=== PATIENT | male | born 1955 | race Caucasian/White ===

== ENCOUNTER → 2018-11-19 07:10 | Outpatient (CLI) | payer BC, SELFPAY ==
[2018-11-19 08:22] LABS: Alanine Aminotransferase 167 IU/L (21-72); Albumin 4.3 g/dL (3.5-5.0); Alkaline Phosphatase 94 U/L (38-126); Aspartate Aminotransferase 136 IU/L (17-59); Bilirubin Total 0.8 mg/dL (0.2-1.3); Blood Urea Nitrogen 20 mg/dL (9-20); Calcium 9.1 mg/dL (8.4-10.2); Carbon Dioxide 26 mmol/L (22-32); Chloride 103 mmol/L (98-107); Cholesterol 165 mg/dL (140-199); Estimated Glomerular Filt Rate > 60.0 mL/min (>60); Globulin 4.3 g/dL (1.7-4.1); Glucose 55 mg/dL (80-110); HDL Cholesterol 56 mg/dL (40-60); HEMOLYSIS < 15 (0-50); LDL Cholesterol Calculated 90 mg/dL (<100); Potassium 3.7 mmol/L (3.4-5.1); Sodium 140 mmol/L (137-145); Total Protein 8.6 g/dL (6.3-8.2); Triglycerides 97 mg/dL (35-150)
[2018-11-19 16:08] LABS: Creatinine Urine Random 160.6 mg/dL
[2018-11-19 16:14] LABS: Microalbumi Creatinin Ratio Ur 38.6 ug/mg CR (<30); Microalbumin Urine Random 6.2 mg/dL (0-1.6)
== END ==
PROVIDERS: Family Provider Family Medicine; PCP Family Medicine; Visit Provider Internal Medicine Endocrinology, Diabetes & Metabolism
DX: E10.649 Type 1 diabetes mellitus with hypoglycemia without coma (principal)
CPT/HCPCS: 36415; 80053; 80061; 82043; 82570

== ENCOUNTER → 2018-12-10 11:13 | Outpatient (CLI) | payer BC, SELFPAY ==
[2018-12-10 12:08] LABS: Alanine Aminotransferase 109 IU/L (21-72); Albumin 4.5 g/dL (3.5-5.0); Alkaline Phosphatase 81 U/L (38-126); Aspartate Aminotransferase 93 IU/L (17-59); Bilirubin Total 0.8 mg/dL (0.2-1.3); Bilirubin Unconjugated 0.5 mg/dL (0.0-1.1); Globulin 4.7 g/dL (1.7-4.1); HEMOLYSIS < 15 (0-50); Total Protein 9.2 g/dL (6.3-8.2)
== END ==
PROVIDERS: Family Provider Family Medicine; PCP Family Medicine; Visit Provider Internal Medicine Endocrinology, Diabetes & Metabolism
DX: E10.649 Type 1 diabetes mellitus with hypoglycemia without coma (principal)
CPT/HCPCS: 36415; 80076

== ENCOUNTER → 2019-01-14 11:32 | Outpatient (CLI) | payer BC, SELFPAY ==
[2019-01-14 13:31] LABS: Alanine Aminotransferase 59 IU/L (21-72); Albumin 4.5 g/dL (3.5-5.0); Albumin Globulin Ratio 1.1 (1.0-2.8); Alkaline Phosphatase 78 U/L (38-126); Aspartate Aminotransferase 68 IU/L (17-59); Bilirubin Total 0.8 mg/dL (0.2-1.3); Bilirubin Unconjugated 0.5 mg/dL (0.0-1.1); HEMOLYSIS < 15 (0-50); Total Protein 8.5 g/dL (6.3-8.2)
== END ==
PROVIDERS: Family Provider Family Medicine; PCP Family Medicine; Visit Provider Internal Medicine Endocrinology, Diabetes & Metabolism
DX: E10.649 Type 1 diabetes mellitus with hypoglycemia without coma (principal)
CPT/HCPCS: 36415; 80076

== ENCOUNTER → 2019-02-08 10:44 | Outpatient (CLI) | payer BC, SELFPAY ==
[2019-02-08 12:17] LABS: Cholesterol 214 mg/dL (140-199); HDL Cholesterol 52 mg/dL (40-60); LDL Cholesterol Calculated 148 mg/dL (<100); Triglycerides 71 mg/dL (35-150)
== END ==
PROVIDERS: Family Provider Family Medicine; PCP Family Medicine; Visit Provider Internal Medicine Endocrinology, Diabetes & Metabolism
DX: E78.00 Pure hypercholesterolemia, unspecified (principal)
CPT/HCPCS: 36415; 80061

== ENCOUNTER → 2019-05-19 08:03 | Outpatient (CLI) | payer BC, SELFPAY ==
[2019-05-19 09:06] LABS: Alanine Aminotransferase 30 IU/L (21-72); Albumin 4.3 g/dL (3.5-5.0); Albumin Globulin Ratio 1.2 (1.0-2.8); Alkaline Phosphatase 67 U/L (38-126); Aspartate Aminotransferase 40 IU/L (17-59); Bilirubin Total 0.9 mg/dL (0.2-1.3); Bilirubin Unconjugated 0.7 mg/dL (0.0-1.1); Cholesterol 253 mg/dL (140-199); Globulin 3.6 g/dL (1.7-4.1); HDL Cholesterol 64 mg/dL (40-60); HEMOLYSIS < 15 (0-50); LDL Cholesterol Calculated 171 mg/dL (<100); Total Protein 7.9 g/dL (6.3-8.2); Triglycerides 92 mg/dL (35-150)
== END ==
PROVIDERS: Family Provider Family Medicine; PCP Family Medicine; Visit Provider Internal Medicine Endocrinology, Diabetes & Metabolism
DX: E78.00 Pure hypercholesterolemia, unspecified (principal)
CPT/HCPCS: 36415; 80061; 80076

== ENCOUNTER 2019-07-17 08:39 | Emergency (ER) | payer BC, SELFPAY ==
[2019-07-17 08:46] VITALS: BP 138/55; PULSE 75; RESP 20; TEMP 36.7; O2SAT 98; BMI 27.6
--- NOTE | 2019-07-17 08:54 | ED.NAVMDI ---
HPI - Nausea/Vomiting/Diarrhea General Chief complaint: Nausea/Vomiting/Diarrhea Stated complaint: high fever/diarrhea/nausea/type 1 dm x5days Time Seen by Provider: 07/17/19 08:52 Source: patient Mode of arrival: ambulatory Limitations: no limitations History of Present Illness HPI Narrative: 63-year-old male. Type 1 diabetic with an insulin pump here for 5 days of feeling ill. He is here with his . He states that his symptoms started 5 days ago with nausea and vomiting and has since turned into diarrhea. He no longer has any nausea vomiting. Only has abdominal pain around the time that he has to have a bowel movement. He is not having any pain with bowel movements. No blood in the stool. No prior abdominal surgeries. He states that his blood sugars have been running higher than normal. No recent travel. No recent antibiotics. No sick contacts. Has not tried anything for symptoms prior to arrival. states he has lost approximately 15 lb in the past 5 days. Related Data Home Medications Medication Instructions Recorded Confirmed aspirin 81 mg tablet,delayed 81 mg PO DAILY 11/25/18 11/25/18 release atorvastatin 20 mg tablet PO 90 Days #90 tab 11/25/18 11/25/18 glucagon (human recombinant) 1 mg IM 60 Days #1 each 11/25/18 11/25/18 solution for injection insulin aspart U-100 100 100 CONTINUOUS IV INFUSION 86 Days #60 11/25/18 11/25/18 unit/mL subcutaneous solution ml olmesartan 20 mg tablet PO 90 Days #90 tab 11/25/18 11/25/18 Previous Rx's Medication Instructions Recorded ondansetron 4 mg PO Q6H PRN #14 tab 07/17/19 Allergies Allergy/AdvReac Type Severity Reaction Status Date / Time No Known Drug Allergies Allergy Verified 07/17/19 08:52 Review of Systems Constitutional Constitutional: Denies fever(s) and Denies headache(s) ENT Ears, Nose, Mouth, and Throat: Denies headache(s) Cardiovascular Cardiovascular: Denies chest pain and Denies dyspnea Respiratory Respiratory: Denies dyspnea Gastrointestinal Gastrointestinal: Denies abdominal pain, Denies melena, Denies hematochezia, Reports diarrhea, Reports nausea and Reports vomiting Genitourinary Genitourinary: Denies dysuria Musculoskeletal Musculoskeletal: Denies myalgias and Denies arthralgias Integumentary/Breasts Skin/Breast: Denies lesions and Denies rash Neurologic Neurologic: Denies behavioral changes and Denies headache(s) Psychiatric Psychiatric: Denies behavioral changes Hematologic/Lymphatic Hematologic/Lymphatic: Denies easy bleeding and Denies easy bruising [facility] Medical History Type 1 diabetes mellitus (04/20/14) Surgical History (Updated 03/17/18 @ 05:03 by Mukesh Buchanan MD) Status post laminectomy Social History marital status: Smoking Status: Never smoker Social History marital status: Smoking Status: Never smoker Exam Initial Vital Signs Initial Vital Signs: Vital Signs Temperature 98.0 F 07/17/19 08:46 Pulse Rate 75 07/17/19 08:46 Respiratory Rate 20 07/17/19 08:46 Blood Pressure 138/55 L 07/17/19 08:46 Pulse Oximetry 98 07/17/19 08:46 Const General: cooperative and well developed Orientation: alert and awake HENMT Head: normal to inspection and normocephalic Resp Effort & Inspection: normal respiratory effort Auscultation: clear to auscultation bilaterally Cardio Rate: regular rate Rhythm: regular rhythm GI Inspection: non-distended Palpation: soft and No firm Skin Lesions: no lesions Rashes: no rashes Neuro General: alert and awake Cognition: normal cognition Speech: speech normal Motor: muscle tone normal throughout Extrem General: normal to inspection and capillary refill normal Psych Appearance: grossly normal and well kempt Course Orders Ordered: ED Orders 07/17/19 08:51 EKG-12 Lead Stat 07/17/19 08:55 Complete Blood Count AUTO DIFF Stat Comprehensive Metabolic Panel Stat Ketones (Beta-Hydroxybutyrate) Stat Lipase Stat Magnesium Stat Phosphorous Stat Troponin I Stat 07/17/19 10:05 Venous Blood Gas Stat Discontinued Medications Sodium Chloride (Normal Saline 0.9%) 1,000 mls @ 1,000 mls/hr IV BOLUS ONE Stop: 07/17/19 10:02 Last Infusion: 07/17/19 10:05 Dose: 0 mls/hr Documented by: Admin: 07/17/19 09:08 Dose: 1,000 mls/hr Documented by: JARVIS Sodium Chloride (Normal Saline 0.9%) 1,000 mls @ 1,000 mls/hr IV BOLUS ONE Stop: 07/17/19 10:56 Last Admin: 07/17/19 10:06 Dose: 1,000 mls/hr Documented by: JARVIS Vital Signs Vital signs: Vital Signs - 8 hr 07/17/19 08:46 07/17/19 09:00 07/17/19 10:00 Temperature 98.0 F Pulse Rate 75 70 66 Respiratory Rate 20 17 16 Blood Pressure 138/55 L Blood Pressure [Left Arm] 117/60 111/56 L Pulse Oximetry 98 97 99 07/17/19 11:00 Temperature Pulse Rate 56 L Respiratory Rate 18 Blood Pressure Blood Pressure [Left Arm] 120/56 L Pulse Oximetry 99 MDM - Nausea/Vomiting/Diarrhea Lab Data Attestation: I reviewed the patient's lab results. Result diagrams: 07/17/19 08:55 07/17/19 08:55 Labs: Lab Results 07/17/19 07/17/19 07/17/19 Range/Units 08:55 08:55 08:55 WBC 5.7 (4.5-11.0) X10^3/uL RBC 4.31 L (4.5-5.9) X10^6/uL Hgb 14.3 (13.5-17.5) g/dL Hct 40.5 L (41-53) % MCV 94.0 (80-100) fL MCH 33.2 (26-34) PG MCHC 35.3 (30-36) % RDW 13.9 (11.6-14.8) % Plt Count 263 (150-400) X10^3/uL Neut % (Auto) 50.0 (50-75) % Lymph % (Auto) 18.9 L (25-40) % [place] % (Auto) 29.1 H (3-14) % Eos % (Auto) 1.6 L (2-4) % Baso % (Auto) 0.4 (0-2) % Neut # (Auto) 2900 (8799-8163) /uL Lymph # (Auto) 1100 (2689-6016) /uL [place] # (Auto) 1700 H (0-900) /uL Eos # (Auto) 100 (0-450) /uL Baso # (Auto) 0 (0-100) /uL PT Cancelled INR Cancelled APTT Cancelled VBG pH (7.33-7.43) VBG pCO2 (45-50) mmHg VBG pO2 (35-45) mmHg VBG HCO3 (23-28) mmol/L VBG Total CO2 (24-29) mmol/L VBG O2 Saturation (70-75) % VBG Base Excess (0-4) mmol/L Sodium 131 L (137-145) mmol/L Potassium 3.6 (3.4-5.1) mmol/L Chloride 95 L (98-107) mmol/L Carbon Dioxide 21 L (22-32) mmol/L BUN 50 H (9-20) mg/dL Creatinine 1.50 H (0.66-1.25) mg/dL Estimated GFR 47.4 L (>60) mL/min BUN/Creatinine Ratio 33.3 H (6-22) Glucose 253 H (80-110) mg/dL Calcium 9.6 (8.4-10.2) mg/dL Phosphorus (2.3-3.7) mg/dL Magnesium (1.6-2.3) mg/dL Total Bilirubin 0.9 (0.2-1.3) mg/dL AST 34 (17-59) IU/L ALT 33 (21-72) IU/L Alkaline Phosphatase 71 (38-126) U/L Troponin I (0.01-0.034) ng/mL Total Protein 7.8 (6.3-8.2) g/dL Albumin 4.0 (3.5-5.0) g/dL Globulin 3.8 (1.7-4.1) g/dL Albumin/Globulin Ratio 1.1 (1.0-2.8) Lipase 47 (23-300) U/L Ketones (<0.27) mmol/L 07/17/19 07/17/19 07/17/19 Range/Units 08:55 08:55 10:05 WBC (4.5-11.0) X10^3/uL RBC (4.5-5.9) X10^6/uL Hgb (13.5-17.5) g/dL Hct (41-53) % MCV (80-100) fL MCH (26-34) PG MCHC (30-36) % RDW (11.6-14.8) % Plt Count (150-400) X10^3/uL Neut % (Auto) (50-75) % Lymph % (Auto) (25-40) % [place] % (Auto) (3-14) % Eos % (Auto) (2-4) % Baso % (Auto) (0-2) % Neut # (Auto) (0708-5442) /uL Lymph # (Auto) (7368-7060) /uL [place] # (Auto) (0-900) /uL Eos # (Auto) (0-450) /uL Baso # (Auto) (0-100) /uL PT INR APTT VBG pH 7.37 (7.33-7.43) VBG pCO2 34.5 L (45-50) mmHg VBG pO2 37 (35-45) mmHg VBG HCO3 20 L (23-28) mmol/L VBG Total CO2 21 L (24-29) mmol/L VBG O2 Saturation 69 L (70-75) % VBG Base Excess -5.0 L (0-4) mmol/L Sodium (137-145) mmol/L Potassium (3.4-5.1) mmol/L Chloride (98-107) mmol/L Carbon Dioxide (22-32) mmol/L BUN (9-20) mg/dL Creatinine (0.66-1.25) mg/dL Estimated GFR (>60) mL/min BUN/Creatinine Ratio (6-22) Glucose (80-110) mg/dL Calcium (8.4-10.2) mg/dL Phosphorus 3.9 H (2.3-3.7) mg/dL Magnesium 2.1 (1.6-2.3) mg/dL Total Bilirubin (0.2-1.3) mg/dL AST (17-59) IU/L ALT (21-72) IU/L Alkaline Phosphatase (38-126) U/L Troponin I < 0.012 (0.01-0.034) ng/mL Total Protein (6.3-8.2) g/dL Albumin (3.5-5.0) g/dL Globulin (1.7-4.1) g/dL Albumin/Globulin Ratio (1.0-2.8) Lipase (23-300) U/L Ketones 0.55 H (<0.27) mmol/L Point of Care Testing Glucose POC 232 ECG Data Attestation: I personally reviewed and interpreted this ECG as follows: Prior ECG tracings: not available for review Interpretation: Sinus rhythm Ventricular rate is 67 Normal axis Normal QRS Normal QTC No ST T wave changes MDM Narrative Medical decision making narrative: Patient has a relatively benign exam. He is not in DKA. His creatinine is elevated I suspect this is dehydration. He did urinate here in the ER. No signs of infection. He is currently taking Imodium. We discussed other potential anti diarrheal treatment such as probiotics. He is not currently nauseous however will send home with Adele. We discussed increasing his fluid intake. We discussed return precautions and follow-up instructions. He expressed understanding and agreement with plan. Discharge Plan Departure Patient Disposition: Home Clinical Impression: Diarrhea Qualifiers: Diarrhea type: unspecified type Qualified Code(s): R19.7 - Diarrhea, unspecified Instructions: Diarrhea (Alternative Therapy), Diarrhea, DI for Dehydration -- Adult Activity Restrictions/Additional Instructions: Continue to monitor your blood sugars. Take all of your medications as directed. Contact your primary provider on Friday. Return to the emergency department for any new or worsening symptoms Prescriptions: New ondansetron 4 mg tablet,disintegrating 4 mg PO Q6H PRN (Reason: nausea and vomiting) Qty: 14 RF: 0 No Action insulin aspart U-100 100 unit/mL solution Continuous IV Infusion 86 Days Qty: 60 RF: 0 atorvastatin 20 mg tablet PO 90 Days Qty: 90 RF: 0 glucagon (human recombinant) 1 mg recon soln IM 60 Days Qty: 1 RF: 0 olmesartan 20 mg tablet PO 90 Days Qty: 90 RF: 0 aspirin [Adult Low Dose Aspirin] 81 mg tablet,delayed release (DR/EC) 81 mg PO DAILY RF: 0 Referrals: Mukesh Buchanan MD [Primary Care Provider] -
[2019-07-17 09:00] VITALS: BP 117/60; PULSE 70; RESP 17; O2SAT 97
[2019-07-17] MEDS: SODIUM CHLORIDE 0.9% 1,000 ML 1000 ML IV ×2 (09:08→10:06)
[2019-07-17 09:13] LABS: Add Manual Diff / Slide Review NO; Basophils Absolute Auto 0 /uL (0-100); Basophils Percent Auto 0.4 % (0-2); Eosinophils Absolute Auto 100 /uL (0-450); Eosinophils Percent Auto 1.6 % (2-4); Hematocrit 40.5 % (41-53); Hemoglobin 14.3 g/dL (13.5-17.5); Lymphocytes Absolute Auto 1100 /uL (1100-4500); Lymphocytes Percent Auto 18.9 % (25-40); Mean Corpuscular HGB Conc 35.3 % (30-36); Mean Corpuscular Hemoglobin 33.2 PG (26-34); Monocytes Absolute Auto 1700 /uL (0-900); Monocytes Percent Auto 29.1 % (3-14); Neutrophils Absolute Auto 2900 /uL (1500-7000); Platelet Count 263 X10^3/uL (150-400); Red Blood Cell Count 4.31 X10^6/uL (4.5-5.9); Red Cell Distribution Width 13.9 % (11.6-14.8); White Blood Cell Count 5.7 X10^3/uL (4.5-11.0)
[2019-07-17 09:26] LABS: Magnesium 2.1 mg/dL (1.6-2.3); Phosphorous 3.9 mg/dL (2.3-3.7)
[2019-07-17 09:27] LABS: Alanine Aminotransferase 33 IU/L (21-72); Albumin Globulin Ratio 1.1 (1.0-2.8); Alkaline Phosphatase 71 U/L (38-126); Aspartate Aminotransferase 34 IU/L (17-59); BUN Creatinine Ratio 33.3 (6-22); Bilirubin Total 0.9 mg/dL (0.2-1.3); Blood Urea Nitrogen 50 mg/dL (9-20); Calcium 9.6 mg/dL (8.4-10.2); Carbon Dioxide 21 mmol/L (22-32); Chloride 95 mmol/L (98-107); Estimated Glomerular Filt Rate 47.4 mL/min (>60); Globulin 3.8 g/dL (1.7-4.1); Glucose 253 mg/dL (80-110); HEMOLYSIS < 15 (0-50); Lipase 47 U/L (23-300); Potassium 3.6 mmol/L (3.4-5.1); Sodium 131 mmol/L (137-145); Total Protein 7.8 g/dL (6.3-8.2)
[2019-07-17 09:28] LABS: Ketones (Beta-Hydroxybutyrate) 0.55 mmol/L (<0.27)
[2019-07-17 09:40] LABS: Troponin I < 0.012 ng/mL (0.01-0.034)
[2019-07-17 10:00] VITALS: BP 111/56; PULSE 66; RESP 16; O2SAT 99
[2019-07-17 10:53] LABS: HCO3 VBG 20 mmol/L (23-28); PCO2 VBG 34.5 mmHg (45-50); PO2 VBG 37 mmHg (35-45); Total CO2 VBG 21 mmol/L (24-29); pH VBG 7.37 (7.33-7.43)
[2019-07-17 10:54] LABS: Oxygen Saturation VBG 69 % (70-75)
[2019-07-17 11:00] VITALS: BP 120/56; PULSE 56; RESP 18; O2SAT 99
== END 2019-07-17 11:44 | disposition home or self-care (01) ==
PROVIDERS: Emergency Provider Emergency Medicine; Family Provider Family Medicine; PCP Family Medicine
DX: R19.7 Diarrhea, unspecified (principal)
CPT/HCPCS: 36415; 36591; 80053; 82009; 82805; 82962; 83690; 83735; 84100; 84484; 85025; 93005; 96360; 96361; 99283; 99284

== ENCOUNTER → 2019-07-21 07:37 | Outpatient (CLI) | payer BC, SELFPAY ==
[2019-07-21 09:52] LABS: Adenovirus F 40/41 Not Detected (Not Detect); Astrovirus Not Detected (Not Detect); Clostridium difficile toxin AB Not Detected (Not Detect); Cryptosporidium Not Detected (Not Detect); Cyclospora cayetanensis Not Detected (Not Detect); Entamoeba histolytica Not Detected (Not Detect); Enteroaggregative E.coli Not Detected (Not Detect); Enteropathogenic E.coli Not Detected (Not Detect); Enterotoxigenic E.coli It/st Not Detected (Not Detect); Giardia lamblia Not Detected (Not Detect); Norovirus GI/GII Not Detected (Not Detect); Plesiomonsa shigelloides Not Detected (Not Detect); Rotavirus A Not Detected (Not Detect); Salmonella Not Detected (Not Detect); Shiga-like toxin-prod E.coli Not Detected (Not Detect); Shigella/Enteroinvasive E.coli Not Detected (Not Detect); Vibrio Not Detected (Not Detect); Vibrio cholerae Not Detected (Not Detect); Yersinia enterocolitica Not Detected (Not Detect)
[2019-07-21 09:58] LABS: Campylobacter Detected (Not Detect)
== END ==
PROVIDERS: PCP Family Medicine; Visit Provider Family Medicine
DX: R19.7 Diarrhea, unspecified (principal)
CPT/HCPCS: 87507

== ENCOUNTER → 2019-09-20 06:56 | Outpatient (CLI) | payer BC, SELFPAY ==
[2019-09-20 07:52] LABS: Alanine Aminotransferase 30 IU/L (<50); Albumin 4.4 g/dL (3.5-5.0); Albumin Globulin Ratio 1.3 (1.0-2.8); Alkaline Phosphatase 73 U/L (38-126); Aspartate Aminotransferase 51 IU/L (17-59); Bilirubin Unconjugated 0.7 mg/dL (0.0-1.1); Cholesterol 179 mg/dL (140-199); Globulin 3.3 g/dL (1.7-4.1); HDL Cholesterol 57 mg/dL (40-60); HEMOLYSIS 20 (0-50); LDL Cholesterol Calculated 105 mg/dL (<100); Total Protein 7.7 g/dL (6.3-8.2); Triglycerides 83 mg/dL (35-150); VLDL Cholesterol Calculated 17 mg/dL (2-30)
== END ==
PROVIDERS: Family Provider Family Medicine; PCP Family Medicine; Visit Provider Internal Medicine Endocrinology, Diabetes & Metabolism
DX: E78.00 Pure hypercholesterolemia, unspecified (principal)
CPT/HCPCS: 36415; 80061; 80076

== ENCOUNTER → 2020-02-02 07:00 | Outpatient (CLI) | payer BC, SELFPAY ==
[2020-02-02 08:39] LABS: Alanine Aminotransferase 44 IU/L (<50); Albumin 4.3 g/dL (3.5-5.0); Albumin Globulin Ratio 1.2 (1.0-2.8); Alkaline Phosphatase 93 U/L (38-126); Aspartate Aminotransferase 49 IU/L (17-59); BUN Creatinine Ratio 23.3 (6-22); Bilirubin Total 0.7 mg/dL (0.2-1.3); Blood Urea Nitrogen 21 mg/dL (9-20); Calcium 9.3 mg/dL (8.4-10.2); Carbon Dioxide 27 mmol/L (22-32); Chloride 102 mmol/L (98-107); Cholesterol 162 mg/dL (140-199); Estimated Glomerular Filt Rate > 60.0 mL/min (>60); Globulin 3.6 g/dL (1.7-4.1); Glucose 139 mg/dL (80-110); HDL Cholesterol 57 mg/dL (40-60); HEMOLYSIS < 15 (0-50); LDL Cholesterol Calculated 88 mg/dL (<100); Potassium 4.3 mmol/L (3.4-5.1); Sodium 138 mmol/L (137-145); Total Protein 7.9 g/dL (6.3-8.2); Triglycerides 86 mg/dL (35-150)
[2020-02-02 08:45] LABS: Creatinine Urine Random 146.1 mg/dL
[2020-02-02 08:49] LABS: Microalbumi Creatinin Ratio Ur 16.4 ug/mg CR (<30); Microalbumin Urine Random 2.4 mg/dL (0-1.6)
== END ==
PROVIDERS: Family Provider Family Medicine; PCP Family Medicine; Referring Provider Internal Medicine Endocrinology, Diabetes & Metabolism; Visit Provider Internal Medicine Endocrinology, Diabetes & Metabolism
DX: E10.649 Type 1 diabetes mellitus with hypoglycemia without coma (principal); E78.5 Hyperlipidemia, unspecified
CPT/HCPCS: 36415; 80053; 80061; 82043; 82570

== ENCOUNTER → 2020-06-13 07:16 | Outpatient (CLI) | payer BC, SELFPAY ==
[2020-06-13 08:57] LABS: Creatinine Urine Random 140.8 mg/dL
[2020-06-13 09:00] LABS: Alanine Aminotransferase 52 IU/L (<50); Albumin 4.2 g/dL (3.5-5.0); Albumin Globulin Ratio 1.2 (1.0-2.8); Alkaline Phosphatase 86 U/L (38-126); Aspartate Aminotransferase 66 IU/L (17-59); BUN Creatinine Ratio 26.7 (6-22); Bilirubin Total 0.9 mg/dL (0.2-1.3); Blood Urea Nitrogen 23 mg/dL (9-20); Calcium 9.7 mg/dL (8.4-10.2); Carbon Dioxide 27 mmol/L (22-32); Chloride 103 mmol/L (98-107); Cholesterol 167 mg/dL (140-199); Estimated Glomerular Filt Rate > 60.0 mL/min (>60); Globulin 3.4 g/dL (1.7-4.1); Glucose 121 mg/dL (80-110); HDL Cholesterol 70 mg/dL (40-60); HEMOLYSIS < 15 (0-50); LDL Cholesterol Calculated 82 mg/dL (<100); Potassium 4.1 mmol/L (3.4-5.1); Sodium 135 mmol/L (137-145); Total Protein 7.6 g/dL (6.3-8.2); Triglycerides 75 mg/dL (35-150); VLDL Cholesterol Calculated 15 mg/dL (2-30)
[2020-06-13 09:02] LABS: Microalbumi Creatinin Ratio Ur 28.4 ug/mg CR (<30)
[2020-06-13 09:30] LABS: Prostate Specific Antigen Scrn 1.03 ng/mL (0.1-4.0)
== END ==
PROVIDERS: Family Provider Family Medicine; PCP Family Medicine; Referring Provider Internal Medicine Endocrinology, Diabetes & Metabolism; Visit Provider Internal Medicine Endocrinology, Diabetes & Metabolism
DX: E10.649 Type 1 diabetes mellitus with hypoglycemia without coma (principal); Z12.5 Encounter for screening for malignant neoplasm of prostate
CPT/HCPCS: 36415; 80053; 80061; 82043; 82570; G0103

== ENCOUNTER → 2020-09-04 07:04 | Outpatient (CLI) | payer BC, SELFPAY ==
[2020-09-04 08:29] LABS: Alanine Aminotransferase 61 IU/L (<50); Albumin 4.4 g/dL (3.5-5.0); Albumin Globulin Ratio 1.1 (1.0-2.8); Alkaline Phosphatase 87 U/L (38-126); Aspartate Aminotransferase 63 IU/L (17-59); Bilirubin Unconjugated 0.9 mg/dL (0.0-1.1); Cholesterol 187 mg/dL (140-199); HDL Cholesterol 68 mg/dL (40-60); HEMOLYSIS < 15 (0-50); LDL Cholesterol Calculated 103 mg/dL (<100); Total Protein 8.4 g/dL (6.3-8.2); Triglycerides 81 mg/dL (35-150)
== END ==
PROVIDERS: Family Provider Family Medicine; PCP Family Medicine; Referring Provider Internal Medicine Endocrinology, Diabetes & Metabolism; Visit Provider Internal Medicine Endocrinology, Diabetes & Metabolism
DX: E78.5 Hyperlipidemia, unspecified (principal)
CPT/HCPCS: 36415; 80061; 80076

== ENCOUNTER → 2020-10-30 07:22 | Outpatient (CLI) | payer BC, SELFPAY ==
--- NOTE | 2020-10-30 | DI.US.S_ITS ---
PROCEDURE: US ABDOMEN LIMITED INDICATIONS: ELEVATED LIVER FUNCTION TESTS TECHNIQUE: Real-time scanning was performed of the abdominal and retroperitoneal organs, with image documentation. COMPARISON: None. FINDINGS: Liver: The liver measures 11.9 cm in length and demonstrates increased echogenicity. Gallbladder: The gallbladder wall measures 1.8 mm in diameter. No stones, sludge, pericholecystic fluid, or sonographic Seymour sign. Biliary ducts: Intrahepatic bile ducts are non-dilated. Extrahepatic bile duct caliber measures 4.0 mm. Normal is 6-7 mm or less in diameter, or 10 mm or less post-cholecystectomy. Pancreas: Visualized portions of the pancreas are sonographically normal. IMPRESSION: 1. Increased hepatic echogenicity noted likely related to fatty infiltration of the liver but other sources of hepatocellular disease cannot be excluded. 2. No cholelithiasis or findings to suggest choledocholithiasis or acute cholecystitis. Dictated by: Blank Colon M.D. on 10/30/2020 at 10:54 Approved by: Blank Colon M.D. on 10/30/2020 at 10:55
== END ==
PROVIDERS: Family Provider Family Medicine; PCP Family Medicine; Referring Provider Family Medicine; Visit Provider Internal Medicine Endocrinology, Diabetes & Metabolism
DX: R79.89 Other specified abnormal findings of blood chemistry (principal)
CPT/HCPCS: 76705

== ENCOUNTER → 2021-02-16 08:13 | Outpatient (CLI) | payer BC, SELFPAY ==
[2021-02-16] MEDS: COVID-19 VACC #1, MRNA(MOD) 100 MCG/0.5 ML VIAL IM (08:18)
== END ==
PROVIDERS: Family Provider Family Medicine; PCP Family Medicine; Visit Provider Internal Medicine
DX: Z23 Encounter for immunization (principal)
CPT/HCPCS: 0011A; 91301

== ENCOUNTER → 2021-03-16 08:16 | Outpatient (CLI) | payer BC, SELFPAY ==
[2021-03-16] MEDS: COVID-19 VACC #2, MRNA(MOD) 100 MCG/0.5 ML VIAL IM (08:21)
== END ==
PROVIDERS: Family Provider Family Medicine; PCP Family Medicine; Visit Provider Internal Medicine
DX: Z23 Encounter for immunization (principal)
CPT/HCPCS: 0012A; 91301

== ENCOUNTER → 2021-04-23 07:54 | Outpatient (CLI) | payer BC, SELFPAY ==
[2021-04-23 08:35] LABS: Alanine Aminotransferase 61 IU/L (<50); Alkaline Phosphatase 135 U/L (38-126); Aspartate Aminotransferase 64 IU/L (17-59); BUN Creatinine Ratio 20.5 (6-22); Bilirubin Total 0.8 mg/dL (0.2-1.3); Blood Urea Nitrogen 16 mg/dL (9-20); Calcium 9.5 mg/dL (8.4-10.2); Carbon Dioxide 28 mmol/L (22-32); Chloride 104 mmol/L (98-107); Cholesterol 190 mg/dL (140-199); Estimated Glomerular Filt Rate > 60.0 mL/min (>60); Globulin 4.1 g/dL (1.7-4.1); Glucose 80 mg/dL (80-110); HDL Cholesterol 59 mg/dL (40-60); HEMOLYSIS < 15 (0-50); LDL Cholesterol Calculated 117 mg/dL (<100); Potassium 3.8 mmol/L (3.4-5.1); Sodium 138 mmol/L (137-145); Total Protein 8.1 g/dL (6.3-8.2); Triglycerides 70 mg/dL (35-150)
== END ==
PROVIDERS: Family Provider Family Medicine; PCP Family Medicine; Referring Provider Internal Medicine Endocrinology, Diabetes & Metabolism; Visit Provider Internal Medicine Endocrinology, Diabetes & Metabolism
DX: E78.5 Hyperlipidemia, unspecified (principal); E10.69 Type 1 diabetes mellitus with other specified complication
CPT/HCPCS: 36415; 80053; 80061

== ENCOUNTER → 2021-07-24 07:09 | Outpatient (CLI) | payer BC, SELFPAY ==
[2021-07-24 08:17] LABS: Alanine Aminotransferase 56 IU/L (<50); Albumin 4.3 g/dL (3.5-5.0); Albumin Globulin Ratio 1.1 (1.0-2.8); Alkaline Phosphatase 105 U/L (38-126); Aspartate Aminotransferase 58 IU/L (17-59); Bilirubin Total 0.7 mg/dL (0.2-1.3); Bilirubin Unconjugated 0.6 mg/dL (0.0-1.1); Globulin 3.8 g/dL (1.7-4.1); HEMOLYSIS < 15 (0-50); Total Protein 8.1 g/dL (6.3-8.2)
== END ==
PROVIDERS: Family Provider Family Medicine; PCP Family Medicine; Referring Provider Internal Medicine Endocrinology, Diabetes & Metabolism; Visit Provider Internal Medicine Endocrinology, Diabetes & Metabolism
DX: E10.649 Type 1 diabetes mellitus with hypoglycemia without coma (principal); I10 Essential (primary) hypertension; E78.5 Hyperlipidemia, unspecified; R94.5 Abnormal results of liver function studies
CPT/HCPCS: 36415; 80076

== ENCOUNTER → 2021-12-14 07:31 | Outpatient (CLI) | payer MEDICARE, OTHER, SELFPAY ==
[2021-12-14 08:33] LABS: Alanine Aminotransferase 50 IU/L (<50); Albumin 4.2 g/dL (3.5-5.0); Albumin Globulin Ratio 1.1 (1.0-2.8); Alkaline Phosphatase 78 U/L (38-126); Aspartate Aminotransferase 60 IU/L (17-59); BUN Creatinine Ratio 26.1 (6-22); Bilirubin Total 0.8 mg/dL (0.2-1.3); Blood Urea Nitrogen 24 mg/dL (9-20); Calcium 9.5 mg/dL (8.4-10.2); Carbon Dioxide 29 mmol/L (22-32); Chloride 103 mmol/L (98-107); Cholesterol 223 mg/dL (140-199); Estimated Glomerular Filt Rate > 60.0 mL/min (>60); Globulin 3.8 g/dL (1.7-4.1); Glucose 82 mg/dL (80-110); HDL Cholesterol 76 mg/dL (40-60); HEMOLYSIS < 15 (0-50); LDL Cholesterol Calculated 132 mg/dL (<100); Potassium 4.3 mmol/L (3.4-5.1); Sodium 135 mmol/L (137-145); Triglycerides 73 mg/dL (35-150)
[2021-12-14 09:14] LABS: Microalbumin Urine Random 2.8 mg/dL (0-1.6)
[2021-12-14 09:16] LABS: Creatinine Urine Random 72.9 mg/dL; Microalbumi Creatinin Ratio Ur 38.4 ug/mg CR (<30)
== END ==
PROVIDERS: Family Provider Family Medicine; PCP Family Medicine; Referring Provider Internal Medicine Endocrinology, Diabetes & Metabolism; Visit Provider Internal Medicine Endocrinology, Diabetes & Metabolism
DX: I10 Essential (primary) hypertension (principal); E10.649 Type 1 diabetes mellitus with hypoglycemia without coma; E78.5 Hyperlipidemia, unspecified
CPT/HCPCS: 36415; 80053; 80061; 82043; 82570

== ENCOUNTER → 2022-02-27 07:11 | Outpatient (CLI) | payer MEDICARE, OTHER, SELFPAY ==
[2022-02-27 09:27] LABS: Alanine Aminotransferase 59 IU/L (<50); Albumin 4.4 g/dL (3.5-5.0); Albumin Globulin Ratio 1.1 (1.0-2.8); Alkaline Phosphatase 108 U/L (38-126); Aspartate Aminotransferase 67 IU/L (17-59); Bilirubin Total 0.7 mg/dL (0.2-1.3); Bilirubin Unconjugated 0.5 mg/dL (0.0-1.1); Cholesterol 209 mg/dL (140-199); Globulin 3.9 g/dL (1.7-4.1); HDL Cholesterol 79 mg/dL (40-60); HEMOLYSIS < 15 (0-50); LDL Cholesterol Calculated 112 mg/dL (<100); Total Protein 8.3 g/dL (6.3-8.2); Triglycerides 88 mg/dL (35-150)
== END ==
PROVIDERS: Family Provider Family Medicine; PCP Family Medicine; Referring Provider Internal Medicine Endocrinology, Diabetes & Metabolism; Visit Provider Internal Medicine Endocrinology, Diabetes & Metabolism
DX: E78.5 Hyperlipidemia, unspecified (principal); E10.649 Type 1 diabetes mellitus with hypoglycemia without coma; R94.5 Abnormal results of liver function studies
CPT/HCPCS: 36415; 80061; 80076

== ENCOUNTER → 2022-06-03 07:02 | Outpatient (CLI) | payer MEDICARE, OTHER, SELFPAY ==
[2022-06-03 08:48] LABS: Alanine Aminotransferase 54 IU/L (<50); Albumin 4.2 g/dL (3.5-5.0); Albumin Globulin Ratio 1.2 (1.0-2.8); Alkaline Phosphatase 86 U/L (38-126); Aspartate Aminotransferase 65 IU/L (17-59); Bilirubin Total 0.7 mg/dL (0.2-1.3); Bilirubin Unconjugated 0.7 mg/dL (0.0-1.1); Globulin 3.6 g/dL (1.7-4.1); HEMOLYSIS < 15 (0-50); Total Protein 7.8 g/dL (6.3-8.2)
== END ==
PROVIDERS: Family Provider Family Medicine; PCP Family Medicine; Referring Provider Internal Medicine Endocrinology, Diabetes & Metabolism; Visit Provider Internal Medicine Endocrinology, Diabetes & Metabolism
DX: K76.0 Fatty (change of) liver, not elsewhere classified (principal)
CPT/HCPCS: 36415; 80076

== ENCOUNTER → 2022-11-18 07:17 | Outpatient (ROUT) | payer MEDICARE, OTHER, SELFPAY ==
[2022-11-18 07:52] LABS: Alanine Aminotransferase 36 IU/L (<50); Albumin 4.3 g/dL (3.5-5.0); Albumin Globulin Ratio 1.1 (1.0-2.8); Alkaline Phosphatase 72 U/L (38-126); Aspartate Aminotransferase 44 IU/L (17-59); BUN Creatinine Ratio 18.4 (6-22); Bilirubin Total 1.1 mg/dL (0.2-1.3); Blood Urea Nitrogen 14 mg/dL (9-20); Calcium 9.1 mg/dL (8.4-10.2); Carbon Dioxide 28 mmol/L (22-32); Chloride 101 mmol/L (98-107); Cholesterol 204 mg/dL (140-199); Estimated Glomerular Filt Rate > 60 mL/min (>60); Globulin 3.9 g/dL (1.7-4.1); Glucose 97 mg/dL (80-110); HDL Cholesterol 73 mg/dL (40-60); HEMOLYSIS < 15 (0-50); LDL Cholesterol Calculated 117 mg/dL (<100); Potassium 3.7 mmol/L (3.4-5.1); Sodium 137 mmol/L (137-145); Total Protein 8.2 g/dL (6.3-8.2); Triglycerides 68 mg/dL (35-150)
[2022-11-18 10:30] LABS: Creatinine Urine Random 87.1 mg/dL
[2022-11-18 10:35] LABS: Microalbumi Creatinin Ratio Ur 84.9 ug/mg CR (<30); Microalbumin Urine Random 7.4 mg/dL (0-1.6)
== END ==
PROVIDERS: Family Provider Family Medicine; PCP Family Medicine; Visit Provider Internal Medicine Endocrinology, Diabetes & Metabolism
DX: E10.649 Type 1 diabetes mellitus with hypoglycemia without coma (principal); E78.5 Hyperlipidemia, unspecified; E16.2 Hypoglycemia, unspecified; I10 Essential (primary) hypertension
CPT/HCPCS: 36415; 80053; 80061; 82043; 82570

== ENCOUNTER → 2023-03-05 10:07 | Outpatient (CLI) | payer MEDICARE, OTHER, SELFPAY ==
[2023-03-05 12:27] LABS: Creatinine Urine Random 23.7 mg/dL
[2023-03-05 12:31] LABS: Microalbumi Creatinin Ratio Ur 185.6 ug/mg CR (<30); Microalbumin Urine Random 4.4 mg/dL (0-1.6)
[2023-03-05 12:32] LABS: Alanine Aminotransferase 46 IU/L (<50); Albumin 4.2 g/dL (3.5-5.0); Albumin Globulin Ratio 1.2 (1.0-2.8); Alkaline Phosphatase 96 U/L (38-126); Aspartate Aminotransferase 54 IU/L (17-59); Bilirubin Total 0.9 mg/dL (0.2-1.3); Bilirubin Unconjugated 0.6 mg/dL (0.0-1.1); Globulin 3.6 g/dL (1.7-4.1); HEMOLYSIS < 15 (0-50); Total Protein 7.8 g/dL (6.3-8.2)
== END ==
PROVIDERS: Family Provider Family Medicine; PCP Family Medicine; Referring Provider Internal Medicine Endocrinology, Diabetes & Metabolism; Visit Provider Internal Medicine Endocrinology, Diabetes & Metabolism
DX: E10.649 Type 1 diabetes mellitus with hypoglycemia without coma (principal); E78.5 Hyperlipidemia, unspecified; E10.69 Type 1 diabetes mellitus with other specified complication
CPT/HCPCS: 36415; 80076; 82043; 82570

== ENCOUNTER → 2023-05-28 07:36 | Outpatient (CLI) | payer MEDICARE, OTHER, SELFPAY ==
[2023-05-28 09:25] LABS: Alanine Aminotransferase 57 IU/L (<50); Albumin 4.3 g/dL (3.5-5.0); Albumin Globulin Ratio 1.1 (1.0-2.8); Alkaline Phosphatase 96 U/L (38-126); Aspartate Aminotransferase 86 IU/L (17-59); BUN Creatinine Ratio 20.9 (6-22); Bilirubin Unconjugated 0.7 mg/dL (0.0-1.1); Blood Urea Nitrogen 19 mg/dL (9-20); Calcium 9.3 mg/dL (8.4-10.2); Carbon Dioxide 26 mmol/L (22-32); Chloride 98 mmol/L (98-107); Estimated Glomerular Filt Rate > 60 mL/min (>60); Globulin 3.8 g/dL (1.7-4.1); Glucose 210 mg/dL (80-110); HEMOLYSIS < 15 (0-50); Potassium 5.2 mmol/L (3.4-5.1); Sodium 131 mmol/L (137-145); Total Protein 8.1 g/dL (6.3-8.2)
[2023-05-28 09:28] LABS: Creatinine Urine Random 130.2 mg/dL
[2023-05-28 09:33] LABS: Microalbumi Creatinin Ratio Ur 48.3 ug/mg CR (<30); Microalbumin Urine Random 6.3 mg/dL (0-1.6)
== END ==
PROVIDERS: Family Provider Family Medicine; PCP Family Medicine; Referring Provider Internal Medicine Endocrinology, Diabetes & Metabolism; Visit Provider Internal Medicine Endocrinology, Diabetes & Metabolism
DX: E10.649 Type 1 diabetes mellitus with hypoglycemia without coma (principal); E78.5 Hyperlipidemia, unspecified; E10.69 Type 1 diabetes mellitus with other specified complication; E10.9 Type 1 diabetes mellitus without complications; I10 Essential (primary) hypertension; K40.90 Unilateral inguinal hernia, without obstruction or gangrene, not specified as recurrent; Z00.00 Encounter for general adult medical examination without abnormal findings; Z12.5 Encounter for screening for malignant neoplasm of prostate
CPT/HCPCS: 36415; 80048; 80076; 82043; 82570

== ENCOUNTER → 2023-07-30 07:01 | Outpatient (CLI) | payer MEDICARE, OTHER, SELFPAY ==
[2023-07-30 08:28] LABS: Glucose 97 mg/dL (80-110)
[2023-08-01 07:09] LABS: C Peptide < 0.1 ng/mL (1.1-4.4)
== END ==
PROVIDERS: Family Provider Family Medicine; PCP Family Medicine; Referring Provider Internal Medicine Endocrinology, Diabetes & Metabolism; Visit Provider Internal Medicine Endocrinology, Diabetes & Metabolism
DX: E10.649 Type 1 diabetes mellitus with hypoglycemia without coma (principal)
CPT/HCPCS: 36415; 82947; 84681

== ENCOUNTER → 2023-09-24 07:16 | Outpatient (CLI) | payer MEDICARE, OTHER, SELFPAY ==
[2023-09-24 09:46] LABS: Alanine Aminotransferase 39 IU/L (<50); Albumin 4.2 g/dL (3.5-5.0); Albumin Globulin Ratio 1.2 (1.0-2.8); Alkaline Phosphatase 60 U/L (38-126); Aspartate Aminotransferase 48 IU/L (17-59); Bilirubin Total 0.9 mg/dL (0.2-1.3); Bilirubin Unconjugated 0.6 mg/dL (0.0-1.1); Globulin 3.5 g/dL (1.7-4.1); HEMOLYSIS < 15 (0-50); Total Protein 7.7 g/dL (6.3-8.2)
== END ==
PROVIDERS: Family Provider Family Medicine; PCP Family Medicine; Referring Provider Internal Medicine Endocrinology, Diabetes & Metabolism; Visit Provider Internal Medicine Endocrinology, Diabetes & Metabolism
DX: E10.649 Type 1 diabetes mellitus with hypoglycemia without coma (principal); E78.5 Hyperlipidemia, unspecified
CPT/HCPCS: 36415; 80076

== ENCOUNTER → 2023-10-15 14:41 | Outpatient (CLI) | payer MEDICARE, OTHER, SELFPAY ==
--- NOTE | 2023-10-15 14:42 | DI.RAD.S_ITS ---
PROCEDURE: XR FOOT RT MIN 3V INDICATIONS: pain 5th metatarsal TECHNIQUE: 3 views of the foot were acquired. COMPARISON: None. FINDINGS: Bones: Query a nondisplaced, extra-articular fracture at the base of the 5th metatarsal. No dislocation. Mild 1st MTP joint space narrowing. Mild midfoot degenerative changes. Tiny plantar Achilles enthesophyte. No suspicious bony lesions. Soft tissues: No tibiotalar joint effusion. Achilles tendon appears normal. Mild soft tissue swelling at the base of the 5th metatarsal. IMPRESSION: Query a nondisplaced extra-articular fracture at the base of the 5th metatarsal. Consider repeat radiograph in 7-10 days. Dictated by: Wilber Lucero M.D. on 10/15/2023 at 21:14 Approved by: Wilber Lucero M.D. on 10/15/2023 at 21:17
== END ==
PROVIDERS: Family Provider Family Medicine; PCP Family Medicine; Referring Provider Family Medicine; Visit Provider Family Medicine
DX: M79.671 Pain in right foot (principal)
CPT/HCPCS: 73630

== ENCOUNTER → 2023-10-31 11:49 | Outpatient (CLI) | payer MEDICARE, OTHER, SELFPAY ==
--- NOTE | 2023-10-31 11:51 | DI.RAD.S_ITS ---
PROCEDURE: XR FOOT RT MIN 3V INDICATIONS: f/u possible 5th metatarsal fx TECHNIQUE: 3 views of the foot were acquired. COMPARISON: [facility], CR, XR FOOT RT MIN 3V, 10/15/2023, 14:58. FINDINGS: Bones: No acute or healing fractures or dislocations. No suspicious bony lesions. Small plantar calcaneal enthesophyte. Soft tissues: No suspicious soft tissue calcifications. IMPRESSION: No acute or healing osseous fracture identified. If there is continued clinical concern, MRI or CT could be performed for further evaluation. Approved by: Trey Del Valle M.D. on 10/31/2023 at 15:06
== END ==
PROVIDERS: Family Provider Family Medicine; PCP Family Medicine; Referring Provider Family Medicine; Visit Provider Family Medicine
DX: M79.671 Pain in right foot (principal); M77.31 Calcaneal spur, right foot
CPT/HCPCS: 73630

== ENCOUNTER → 2024-08-20 07:04 | Outpatient (CLI) | payer MEDICARE, OTHER, SELFPAY ==
[2024-08-20 08:50] LABS: Alanine Aminotransferase 36 IU/L (<50); Albumin 4.2 g/dL (3.5-5.0); Albumin Globulin Ratio 1.4 (1.0-2.8); Alkaline Phosphatase 74 U/L (38-126); Aspartate Aminotransferase 49 IU/L (17-59); BUN Creatinine Ratio 22.5 (6-22); Bilirubin Total 0.9 mg/dL (0.2-1.3); Blood Urea Nitrogen 20 mg/dL (9-20); Calcium 9.3 mg/dL (8.4-10.2); Carbon Dioxide 24 mmol/L (22-32); Chloride 105 mmol/L (98-107); Cholesterol 180 mg/dL (140-199); Estimated Glomerular Filt Rate > 60 mL/min (>60); Globulin 3.1 g/dL (1.7-4.1); Glucose 109 mg/dL (80-110); HDL Cholesterol 73 mg/dL (40-60); HEMOLYSIS < 15 (0-50); LDL Cholesterol Calculated 93 mg/dL (<100); Potassium 3.9 mmol/L (3.4-5.1); Sodium 137 mmol/L (137-145); Total Protein 7.3 g/dL (6.3-8.2); Triglycerides 72 mg/dL (35-150)
[2024-08-20 08:55] LABS: Creatinine Urine Random 146.18 mg/dL
[2024-08-20 09:00] LABS: Microalbumin Urine Random 7.4 mg/dL (0-1.6)
== END ==
PROVIDERS: Family Provider Family Medicine; PCP Family Medicine; Referring Provider Internal Medicine Endocrinology, Diabetes & Metabolism; Visit Provider Internal Medicine Endocrinology, Diabetes & Metabolism
DX: I10 Essential (primary) hypertension (principal); E10.649 Type 1 diabetes mellitus with hypoglycemia without coma
CPT/HCPCS: 80053; 80061; 82043; 82570

== ENCOUNTER → 2024-09-14 07:05 | Outpatient (CLI) | payer MEDICARE, OTHER, SELFPAY ==
[2024-09-14 08:35] LABS: Alanine Aminotransferase 31 IU/L (<50); Albumin 4.1 g/dL (3.5-5.0); Albumin Globulin Ratio 1.2 (1.0-2.8); Alkaline Phosphatase 70 U/L (38-126); Aspartate Aminotransferase 44 IU/L (17-59); BUN Creatinine Ratio 24.2 (6-22); Bilirubin Total 0.7 mg/dL (0.2-1.3); Blood Urea Nitrogen 22 mg/dL (9-20); Calcium 9.7 mg/dL (8.4-10.2); Carbon Dioxide 27 mmol/L (22-32); Chloride 104 mmol/L (98-107); Cholesterol 192 mg/dL (140-199); Estimated Glomerular Filt Rate > 60 mL/min (>60); Globulin 3.4 g/dL (1.7-4.1); Glucose 116 mg/dL (80-110); HDL Cholesterol 69 mg/dL (40-60); HEMOLYSIS < 15 (0-50); LDL Cholesterol Calculated 110 mg/dL (<100); Potassium 4.6 mmol/L (3.4-5.1); Sodium 136 mmol/L (137-145); Total Protein 7.5 g/dL (6.3-8.2); Triglycerides 64 mg/dL (35-150)
[2024-09-14 09:02] LABS: Prostate Specific Antigen Scrn 1.21 ng/mL (0.1-4.0)
== END ==
PROVIDERS: Family Provider Family Medicine; PCP Family Medicine; Referring Provider Family Medicine; Visit Provider Family Medicine
DX: E10.9 Type 1 diabetes mellitus without complications (principal); Z12.5 Encounter for screening for malignant neoplasm of prostate; I10 Essential (primary) hypertension; E78.5 Hyperlipidemia, unspecified
CPT/HCPCS: 36415; 80053; 80061; G0103

== ENCOUNTER 2025-01-14 08:29 | Day surgery (SDC) | payer MEDICARE, OTHER, SELFPAY ==
--- NOTE | 2025-01-14 | PATH_ITS ---
[facility] Accession Number: [id number] No. of containers..01 Tissue . 01 Material submitted: . cecum - CECAL POLYP . 01 Diagnosis: CECUM: Histologically unremarkable colonic mucosa, consistent with a polypoid redundancy. Multiple levels examined. Negative for a serrated lesion, dysplasia, and malignancy. MRV 01/19/2025 1613 Local . 01 Electronically signed: . Destinee Phan DO, Pathologist NPI- [id number] . 01 Gross description: . CECAL POLYP: Received in formalin is 1 fragment(s) of rojo, soft tissue measuring 0.6 x 0.3 x 0.2 cm submitted entirely in 1 cassette(s) /JAIRO 01/15/2025 0058 Local . 01 Pathologist provided ICD-10: Z12.11 . 01 CPT . 314699 Specimen Comment: A courtesy copy of this report has been sent to [facility] Pathology Performed at: [address] [address], [place], [place] [id number] MD Carlito Inman MD Phone: [phone]
[2025-01-14 09:00] VITALS: BP 146/66; PULSE 71; RESP 16; TEMP 36.6; O2SAT 98
--- NOTE | 2025-01-14 09:17 | P.HP_ITS ---
History of Present Illness History of Present Illness Date Patient Seen: 01/14/25 Time Patient Seen: 09:18 Chief complaint: Screening colonoscopy Narrative: This is a 69-year-old gentleman who presents for screening colonoscopy. Patient has a past medical history of type 1 diabetes, hypertension, hyperlipidemia and recent right finger cellulitis. Patient states that his last colonoscopy was approximately 10 years ago and denies any history of colonic polyps. Patient does have a family history of colon cancer. Patient states that his grandmother on his paternal side of colon cancer at the age of 50. Denies any other family history of colon abnormalities. Patient feels well and denies any abdominal pain at this time. Patient was able to tolerate a bowel prep without any nausea or emesis. Patient denies any blood in his stool at this time. [facility] Medical History (Updated 01/14/25 @ 09:23 by Cynthia Casarez MD) Encounter for subsequent annual wellness visit (AWV) in Medicare patient Inguinal hernia Type 1 diabetes mellitus (04/20/14) Surgical History (Updated 03/17/18 @ 05:03 by Mukesh Buchanan MD) Status post laminectomy Social History marital status: Smoking Status: Never smoker alcohol intake: current substance use type: does not use Meds Home Medications and Allergies Home Medications Medication Instructions Recorded Confirmed Type aspirin 81 mg tablet,delayed 81 mg PO DAILY 11/25/18 01/10/25 History release (Adult Low Dose Aspirin) insulin aspart U-100 100 unit/mL continuous IV infusion 86 days #60 11/25/18 01/10/25 History subcutaneous solution mL glucagon 3 mg/actuation nasal spray 3 mg intranasal ONCE 01/14/23 01/10/25 History insulin lispro 100 unit/mL 70 unit continuous IV infusion 10/15/23 01/10/25 History subcutaneous solution (Humalog DAILY U-100 Insulin) amlodipine 2.5 mg tablet 2.5 mg PO DAILY #100 tabs 10/20/24 01/10/25 Rx olmesartan 40 mg tablet 40 mg PO DAILY #100 tabs 10/20/24 01/10/25 Rx pravastatin 10 mg tablet 10 mg PO ONCE PM #100 tabs 10/20/24 01/10/25 Rx sodium,potassium,mag sulfates 17.5 See Rx Instructions PO .COMPLEX 12/02/24 01/10/25 Rx gram-3.13 gram-1.6 gram oral soln #354 mL (Suprep Bowel Prep Kit) blood sugar diagnostic (OneTouch #100 ea 12/14/24 01/10/25 Rx Verio test strips) doxycycline hyclate 100 mg tablet 100 mg PO BID #14 tabs 01/10/25 01/10/25 Rx Allergies Allergy/AdvReac Type Severity Reaction Status Date / Time No Known Drug Allergies Allergy Verified 01/10/25 11:43 Review of Systems Review of Systems ROS: Yes All systems reviewed with the patient and are negative except as otherwise documented Exam Vital Signs (past 8 hours): - 01/14/25 09:00 Temperature 97.8 F Pulse Rate 71 Respiratory Rate 16 Blood Pressure 146/66 H Pulse Oximetry 98 Oxygen Delivery Method Room Air Oxygen Delivery Method Room Air Const General: cooperative, healthy appearing, comfortable and well developed Orientation: alert, awake and oriented x3 HENMT Head: normal to inspection Ears: hearing grossly normal bilaterally Eyes General: appearance normal, both eyes and all related structures Neck Neck: normal visual inspection Chest Chest: normal inspection of the chest Resp Effort & Inspection: normal respiratory effort, able to speak in complete sentences and no respiratory distress GI Inspection: normal to inspection Palpation: soft, no hepatosplenomegaly, No guarding and No hernia Percussion: normal to percussion Back/Spine/Pelvis Back: normal to inspection Skin General: no rashes or lesions noted and erythema (Right middle finger with resolving cellulitis) Neuro General: patient alert, patient awake and patient oriented x3 Extrem General: normal to inspection Psych Appearance: grossly normal Mental Status: mental status grossly normal Assessment & Plan Assessment and plan (1) Encounter for screening colonoscopy: Status: Acute (2) Family history of malignant neoplasm of colon: Status: None Assessment & Plan narrative: This is a 69-year-old gentleman with a past medical history of type 1 diabetes, hypertension and hyperlipidemia who has a family history of colon cancer who presents for screening colon colonoscopy. -NPO, IV fluids and prepare for screening colonoscopy today -ParQ patient agreed to proceed with procedure. Consent signed and dated. -Plan for discharge post operative Time-Based Coding :: 30 spent with patient and on the chart (including review of chart, obtaining history, exam, reviewing outside data, placing orders, documenting exam and treatment plan, and counseling patient) on [DATE]. PROFEE Application Support Analyst Document charge(s): Yes Charge Codes Inpatient/observation care including admit and discharge same day: [id number]
[2025-01-14 11:03] VITALS: BP 91/54; PULSE 69; RESP 14; TEMP 36.5; O2SAT 97
--- NOTE | 2025-01-14 11:03 | P.OP.COLON_ITS ---
Operative Date/Time/Diagnoses Date of procedure: 01/14/25 Time of procedure: 10:35 Pre-op diagnosis: Screening for malignant neoplasm of the colon; Family history of colon cancer Post-op diagnosis: same Procedure & Clinicians Study performed: Screening colonoscopy Same procedure as scheduled: Yes Surgeon: Cynthia Casarez Procedure Notes SCOAP/Timeout: time-out was performed at 10:35 a.m. Procedure in detail: Introduction: A 69-year-old gentleman presents for elective outpatient screening colonoscopy. Patient has a family history of colon cancer. Indications: - Screening colonoscopy - Family history of colon cancer Consent: The benefits, risks and alternatives to the procedure were discussed with the patient and informed written consent was obtained. Preparation: EKG, pulse, pulse oximeter and blood pressure were monitored throughout the procedure Medications: - monitoring anesthesia care provided by SALES CLERK SUPERVISOR Rectal exam: Normal rectal exam. Procedure: The colonoscope was passed through the anus under direct visualization and was advanced with ease to the ileocecal valve. The patient was found to have a 4 mm benign possible polyp near the appendiceal orifice. This was taken with a cold snare. The specimen was retrieved and sent to pathology as a permanent specimen. The time to the cecum was approximately 6 minutes. The withdrawal time was 19 minutes. After resection of the polyp, no bleeding was noted. The scope was withdrawn and all the mucosa was carefully examined. Findings: Patient was found to have an overall normal colon except for the 4 mm benign-appearing polyp(hyperplastic appearing) in the cecum. Unplanned events: There were no unplanned events. Summary: -Normal-appearing colon. -Patient was found to have a 4 mm cecal polyp near the appendiceal orifice. This was resected with a cold snare and retrieved. Polyp was sent to pathology. Recommendations: -avoid all nonsteroidal anti-inflammatory drugs including but not limited to ibuprofen, Advil, Motrin for 5 days -Discharge home when standard parameters are met -Continue regular diet. -colonoscopy recommended in 10 years -follow-up via telephone with the office in 1 week to discuss the results of the polyp. Scope withdrawal time: 19 minutes Sedation minutes: 30 Findings: polyp(s) ( cecal periappendiceal polyp) Specimen(s): other ( cecal polyp) Complications: none Impression: patient had normal colon with no evidence of diverticulosis, AVMs, bleeding, normal haustra. Patient was found to have one benign-appearing 4 mm cecal polyp. Of note this polyp, was near the appendiceal orifice Post-procedure Recommendations: Colonoscopy in 10 years Plan for aftercare: discharged home Follow up: as needed Disposition: PACU
[2025-01-14 11:08] VITALS: BP 97/56; PULSE 76; RESP 16; O2SAT 97
[2025-01-14 11:13] VITALS: BP 114/60; RESP 16; O2SAT 97
[2025-01-14 11:14] VITALS: BP 114/68; PULSE 74; RESP 16; O2SAT 97
== END 2025-01-14 11:35 | disposition home or self-care (01) ==
PROVIDERS: Family Provider Family Medicine; PCP Family Medicine; Referring Provider Surgery; Visit Provider Surgery
PROC: 0DJD8ZZ Inspection of Lower Intestinal Tract, Via Natural or Artificial Opening Endoscopic (ICD-10-PCS; CPT 45378; principal; 2025-01-14 09:30)
DX: Z12.11 Encounter for screening for malignant neoplasm of colon (principal); E10.9 Type 1 diabetes mellitus without complications; Z79.4 Long term (current) use of insulin; I10 Essential (primary) hypertension; E78.5 Hyperlipidemia, unspecified; K63.5 Polyp of colon
CPT/HCPCS: 45385; J2405; J2704

== ENCOUNTER → 2025-02-24 07:55 | Outpatient (CLI) | payer MEDICARE, OTHER, SELFPAY ==
[2025-02-24 09:01] LABS: Cholesterol 195 mg/dL (140-199); HDL Cholesterol 80 mg/dL (40-60); LDL Cholesterol Calculated 106 mg/dL (<100); Triglycerides 43 mg/dL (35-150)
[2025-02-24 10:39] LABS: Creatinine Urine Random 80.93 mg/dL
[2025-02-24 10:43] LABS: Microalbumin Urine Random 18.6 mg/dL (0-1.6)
== END ==
PROVIDERS: Family Provider Family Medicine; PCP Family Medicine; Referring Provider Student in an Organized Health Care Education/Training Program; Visit Provider Student in an Organized Health Care Education/Training Program
DX: E10.69 Type 1 diabetes mellitus with other specified complication (principal)
CPT/HCPCS: 36415; 80061; 82043; 82570

== ENCOUNTER → 2025-07-29 06:56 | Outpatient (CLI) | payer MEDICARE, OTHER, SELFPAY ==
[2025-07-29 08:11] LABS: Glucose 155 mg/dL (70-99)
== END ==
PROVIDERS: Family Provider Family Medicine; PCP Family Medicine; Referring Provider Student in an Organized Health Care Education/Training Program; Visit Provider Student in an Organized Health Care Education/Training Program
DX: E10.649 Type 1 diabetes mellitus with hypoglycemia without coma (principal)
CPT/HCPCS: 36415; 82947; 84681

== ENCOUNTER → 2025-11-07 14:55 | Outpatient (CLI) | payer MEDICARE, OTHER, SELFPAY ==
[2025-11-07 15:40] LABS: Add Manual Diff / Slide Review NO; Hematocrit 35.8 % (41-53); Hemoglobin 12.2 g/dL (13.5-17.5); Lymphocytes Absolute Auto 1000 /uL (1100-4500); Mean Corpuscular HGB Conc 34.2 % (30-36); Mean Corpuscular Hemoglobin 32.2 PG (26-34); Mean Corpuscular Volume 94.2 fL (80-100); Platelet Count 264 X10^3/uL (150-400)
[2025-11-07 15:56] LABS: HEMOLYSIS < 15 (0-50); Iron 85 ug/dL (49-181)
[2025-11-07 15:58] LABS: Alanine Aminotransferase 35 IU/L (<50); Albumin 4.5 g/dL (3.5-5.0); Albumin Globulin Ratio 1.3 (1.0-2.8); Alkaline Phosphatase 84 U/L (38-126); Blood Urea Nitrogen 20 mg/dL (9-20); Calcium 9.6 mg/dL (8.4-10.2); Carbon Dioxide 27 mmol/L (22-32); Chloride 103 mmol/L (98-107); Cholesterol 189 mg/dL (140-199); Estimated Glomerular Filt Rate > 60 mL/min (>60); Globulin 3.6 g/dL (1.7-4.1); Glucose 184 mg/dL (70-99); HDL Cholesterol 78 mg/dL (40-60); HEMOLYSIS < 15 (0-50); Hemoglobin A1C% w Est Avg Glu 6.3 % (4.0-6.0); Potassium 4.4 mmol/L (3.4-5.1); Sodium 137 mmol/L (137-145); Total Protein 8.1 g/dL (6.3-8.2); Triglycerides 86 mg/dL (35-150)
[2025-11-07 16:09] LABS: Percent Iron Saturation 34 % (20-50); Total Iron Binding Capacity 248 ug/dL (261-462); Transferrin 213 mg/dL (206-381)
[2025-11-07 16:31] LABS: Ferritin 82 ng/mL (18-464)
[2025-11-07 16:33] LABS: TSH w/ Reflex to FT4 2.35 uIU/mL (0.47-4.68)
[2025-11-08 16:17] LABS: Hep C Virus Ab w/Reflex Quant NEGATIVE s/c (NEGATIVE)
== END ==
PROVIDERS: PCP Family Medicine; Referring Provider Family Medicine; Visit Provider Family Medicine
DX: Z00.00 Encounter for general adult medical examination without abnormal findings (principal); E10.9 Type 1 diabetes mellitus without complications; I10 Essential (primary) hypertension; E78.5 Hyperlipidemia, unspecified; D64.9 Anemia, unspecified; M25.511 Pain in right shoulder; L65.9 Nonscarring hair loss, unspecified
CPT/HCPCS: 36415; 80053; 80061; 82728; 83036; 83540; 83550; 84443; 85025; 86803